=== PATIENT | male | born 1965 ===

== ENCOUNTER 2022-05-30 17:15 | Emergency (ER) | payer BC, SELFPAY ==
[2022-05-30 17:47] VITALS: BP 157/82; PULSE 70; RESP 18; TEMP 36.7; O2SAT 99
--- NOTE | 2022-05-30 17:53 | ED.EYEPROB ---
HPI - Eye Problem General Chief complaint: Eye Problems Stated complaint: Left eye irritation Time Seen by Provider: 05/30/22 17:53 Source: patient, RN notes reviewed and old records reviewed Mode of arrival: ambulatory Limitations: no limitations History of Present Illness HPI Narrative: 56-year-old male presents to the [facility] with left eye irritation. patient reports this morning it feels like there was something in his left lower lateral eyelid. Had been tearing. No crusting over. Denies any change in vision, blurry vision, trauma to the eye. Tried calling [facility], was booked up till Thursday. is a contact wearer Onset (ago): hour(s) Related Data Home Medications Medication Instructions Recorded Confirmed lisinopril 20 mg tablet 20 mg PO DAILY 05/30/22 05/30/22 metoprolol tartrate 25 mg tablet 25 mg PO DAILY 05/30/22 05/30/22 Allergies Allergy/AdvReac Type Severity Reaction Status Date / Time acetaminophen [Endocet] Allergy Unknown nerve Verified 05/30/22 20:31 problem in face oxycodone Allergy Unknown nerve Verified 05/30/22 20:31 problem in face Review of Systems Review of Systems: All systems reviewed & are unremarkable except as noted in HPI and below Constitutional: Constitutional: Reports no additional constitutional complaints Eyes: Eyes: Reports as per HPI, Denies change in vision and Denies photophobia ENT: Reports system reviewed and no additional complaints, except as documented Cardiovascular: Cardiovascular: Reports no additional cardiovascular complaints, Denies chest pain and Denies dyspnea Respiratory: Respiratory: Reports no additional respiratory complaints, Denies chest congestion, Denies cough and Denies dyspnea Gastrointestinal: Gastrointestinal: Reports no additional gastrointestinal complaints, Denies abdominal pain, Denies nausea and Denies vomiting Musculoskeletal: Musculoskeletal: Reports no additional musculoskeletal complaints Integumentary/Breasts: Skin/Breast: Reports system reviewed and no additional complaints, except as docu Neurologic: Reports system reviewed and no additional complaints, except as documented Psychiatric: Psychiatric: Reports no additional psychiatric complaints Allergic/Immunologic: Allergic/Immunologic: Reports no additional allergic/immunologic complaints [facility] Past Medical History Medical History (Updated 05/30/22 @ 20:31 by Araceli Reyes APRN) History of high blood pressure Social History Social History (Updated 05/30/22 @ 20:31 by Araceli Reyes APRN) Living arrangements: with family Gender identity (if verbalized by the patient): Male Comments At the time of my signature, I reviewed and agree with the nursing past medical, surgical, social, and family history. There is no relevant family history pertinent to the patient complaint. Exam Const: General: cooperative, healthy appearing, comfortable, no acute distress, well developed, alert and well nourished Nutritional Appearance: well nourished Orientation/consciousness: patient oriented x3 Limitations: no limitations HENMT: Head: normal to inspection Ears: hearing grossly normal bilaterally and external ears normal Face/Nose/Sinus: Normal external nose present, Normal nares present, Normal nasal mucous membranes and turbinates present and normal facial exam Face and sinus: normal facial exam Mouth: Yes Normal oral and palatal mucosa present, Yes lip normal and Yes moist mucous membranes Throat: posterior oropharynx normal and uvula midline Eyes: General: appearance normal, both eyes and all related structures Alignment and Position: alignment normal Periorbital: periorbital findings normal Conjunctivae: conjunctival abnormality left conjunctival injection localized ( lower lid) and discharge ( clear) Pupils: Equal, round and reactive pupils present EOM: EOMs intact bilaterally Other: stye noted left lower lid Neck: Neck: normal visual
== END 2022-05-30 18:08 | disposition home or self-care (01) ==
PROVIDERS: Emergency Provider Nurse Practitioner; PCP Student in an Organized Health Care Education/Training Program
DX: H10.32 Unspecified acute conjunctivitis, left eye (principal); H00.015 Hordeolum externum left lower eyelid
CPT/HCPCS: 99213; G0463

== ENCOUNTER 2022-06-30 08:02 | Emergency (ER) | payer BC, SELFPAY ==
[2022-06-30 08:15] VITALS: BP 152/77; PULSE 78; RESP 16; TEMP 36.6; O2SAT 100
--- NOTE | 2022-06-30 08:34 | ED.URI ---
HPI - URI/Sore Throat General Chief Complaint: Upper Respiratory Infection Stated Complaint: Congestion,Cough,Headache,Body Aches Source: patient Mode of arrival: ambulatory Limitations: no limitations History of Present Illness HPI Narrative: 56-year-old male presents to [facility] with complaints of dry cough for the past week. Patient reports that 3 days ago his symptoms became worse when he started with body aches. Headache, postnasal drainage, sore throat and intermittent dizziness. Patient has been taking [id number] cold medications with minimal relief. Patient is a nonsmoker. Patient denies recent travel. Patient denies sick contacts. Patient denies shortness of breath, wheezing, nausea, vomiting, diarrhea. MD elicited complaint: cough, sore throat, rhinorrhea and nasal congestion Onset (ago): day(s) (3) Able to tolerate fluids by mouth: Yes Treatments prior to arrival: cold medicine Related Data Home Medications Medication Instructions Recorded Confirmed amlodipine 10 mg tablet 10 mg DIRECTED 06/30/22 06/30/22 pregabalin 50 mg capsule 50 mg DIRECTED 06/30/22 06/30/22 Allergies Allergy/AdvReac Type Severity Reaction Status Date / Time acetaminophen [Endocet] Allergy Unknown nerve Verified 05/30/22 20:31 problem in face oxycodone Allergy Unknown nerve Verified 05/30/22 20:31 problem in face Review of Systems Constitutional: Constitutional: Reports chills, Reports fatigue, Denies fever(s) and Denies weakness ENT: Denies dizziness, Denies epistaxis, Reports nasal congestion and Reports sore throat Respiratory: Respiratory: Denies chest congestion, Reports cough, Denies dyspnea and Denies wheezing Gastrointestinal: Gastrointestinal: Denies diarrhea Integumentary/Breasts: Skin/Breast: Denies erythema, Denies rash and Denies skin ulcer PMFSH Past Medical History Medical History History of high blood pressure Social History Social History Living arrangements: with family Gender identity (if verbalized by the patient): Male Comments At time of signature, I agree with nursing past medical, surgical, social and family history. There is no relevant family history pertinent to the presenting complaint. Exam Const: General: healthy appearing and no acute distress Nutritional Appearance: well nourished Orientation/consciousness: patient oriented x3 Limitations: no limitations HENMT: Head: normal to inspection Ears: external ears normal, TM's normal bilaterally and EAC's normal Mouth: Yes Normal oral and palatal mucosa present, Yes lip normal and Yes moist mucous membranes Teeth and gingiva: dentition normal Throat: posterior oropharynx normal and uvula midline Other: Moderate nasal congestion noted Eyes: Conjunctivae: conjunctivae normal Neck: Neck: normal visual inspection Resp: Effort & Inspection: normal respiratory effort and not labored Auscultation: clear to auscultation bilaterally, no crackles, no rales, no rhonchi and no wheezes Cardio: Rate: regular rate Rhythm: regular rhythm Heart sounds: no murmurs Skin: General skin exam: normal color Rashes: no rashes Wounds: no wounds Neuro: General: patient oriented x3 Speech: normal speech Psych: Affect: normal affect Attitude: cooperative Course Course Level of Care: Express Care Visit Vital Signs Vital signs: Vital Signs Temperature 36.6 C 06/30/22 08:15 Pulse Rate 78 06/30/22 08:15 Respiratory Rate 16 06/30/22 08:15 Blood Pressure 152/77 H 06/30/22 08:15 Pulse Oximetry 100 06/30/22 08:15 Oxygen Delivery Room Air 06/30/22 08:15 Temperature 36.6 C 06/30/22 08:15 Pulse Rate 78 06/30/22 08:15 Respiratory Rate 16 06/30/22 08:15 Blood Pressure 152/77 H 06/30/22 08:15 Pulse Oximetry 100 06/30/22 08:15 Oxygen Delivery Room Air 06/30/22 08:15
== END 2022-06-30 08:53 | disposition home or self-care (01) ==
PROVIDERS: Emergency Provider Nurse Practitioner Family; PCP Student in an Organized Health Care Education/Training Program
DX: U07.1 COVID-19 (principal)
CPT/HCPCS: 87081; 87426; 87804; 87880; 99213; C9803; G0463

== ENCOUNTER 2022-11-07 15:38 | Emergency (ER) | payer BC, SELFPAY ==
--- NOTE | ~2022-11-07 | XR_ITS ---
XR knee LT min 4V DATE: 11/07/2022 16:34 INDICATION: Patellar pain and swelling for 3 weeks after kneeling on floor TECHNIQUE: [place], lateral and standing AP and PA views of the left knee COMPARISON: 11/04/2006 left knee FINDINGS: There is inferior prepatellar soft tissue swelling. There is mild loss of height of the med ial compartment. No fracture or dislocation or joint effusion is detected. No radiopaque intra-articu lar loose body or chondrocalcinosis. No periosteal reaction or bone destruction. IMPRESSION: Prepatellar soft tissue swelling is noted in the inferior half of the patella Mild loss of height of medial compartment joint space No fracture or dislocation or joint effusion Reviewed, dictated and finalized at location B. IMPRESSION: Prepatellar soft tissue swelling is noted in the inferior half of t he patella Mild loss of height of medial compartment joint space No fracture or dislocation or joint effusion
[2022-11-07 15:46] VITALS: BP 144/73; PULSE 74; RESP 16; TEMP 36.4; O2SAT 95
--- NOTE | 2022-11-07 16:32 | ED.EXTPRO ---
HPI - Extremity Problem General Chief complaint: Extremity Problem,Nontraumatic Stated complaint: Lt Knee Time Seen by Provider: 11/07/22 16:32 Source: patient Mode of arrival: ambulatory Limitations: no limitations History of Present Illness HPI Narrative: 57-year-old male presented for complaint of left knee swelling for about 2 weeks. States this started after he was kneeling and felt something roll underneath the knee. He was seen by an Urgent Care, given prescription for steroid and reported mild improvement. Pain is mild, states slightly worse with ambulation. Denies redness, warmth,numbness, tingling, weakness of the extremity. He is not taking anything else for pain. Related Data Home Medications Medication Instructions Recorded Confirmed amlodipine 10 mg tablet 10 mg DIRECTED 06/30/22 11/07/22 pregabalin 50 mg capsule 50 mg DIRECTED 06/30/22 11/07/22 omeprazole 20 mg capsule,delayed 20 mg PO DAILY 11/07/22 11/07/22 release Allergies Allergy/AdvReac Type Severity Reaction Status Date / Time acetaminophen [Endocet] AdvReac Intermediate nerve Verified 11/07/22 15:59 problem in face oxycodone AdvReac Intermediate nerve Verified 11/07/22 15:59 problem in face Review of Systems Review of Systems: CONSTITUTIONAL: Denies body aches, fever, chills EYES: Denies visual changes ENT: Denies rhinorrhea, congestion CARDIOVASCULAR: Denies chest pain, palpitations, or edema. RESPIRATORY: Denies cough or dyspnea. GASTROINTESTINAL: Denies abdominal pain, nausea, vomiting, or diarrhea. SKIN: Denies rash, itching, or wounds. MUSCULOSKELETAL: Reports left knee swelling Denies back pain, joint pain, or myalgia. NEUROLOGIC: Denies headache, numbness, tingling, or weakness. PSYCH: Denies depression or anxiety. All systems reviewed & are unremarkable except as noted in HPI and below PMFSH Past Medical History Medical History History of high blood pressure Social History Social History Living arrangements: with family Gender identity (if verbalized by the patient): Male Comments At time of signature, I have reviewed and agree with nursing past medical, surgical, social and family history unless otherwise noted. Please see nursing chart for further information. There is no relevant family history pertinent to the presenting complaint Exam Narrative: GENERAL: Well-appearing, well-nourished, and in no acute distress. HEAD: Normocephalic, atraumatic. EYES: PERRLA, conjunctivae clear NECK: Supple. CHEST: Speaks in full sentences. No respiratory distress. HEART: Regular rate and rhythm. Normal and equal peripheral pulses. EXTREMITIES: left knee soft tissue swelling inferior and medially to patella, soft, nontender, no erythema or warmth. Mild tenderness medial aspect. Patient is able to bear weight and ambulate with minimal pain to the left knee. Patient is able to tolerate full flexion, extension, internal and external rotation. No tenderness to palpation of the patella, no effusion or ballottement. No tenderness over the proximal fibular head. No quadriceps tenderness. Distal motor and neurovascular status intact. No obvious deformity; alignment normal, pulse palpable and equal bilaterally, skin warm, dry, pink. Capillary refill less than 3 seconds. SKIN: Warm, dry, no rash. NEURO: Alert and oriented x3. Course Course Emergency Course: Patient is aware of diagnosis, understands and agrees to treatment plan. Anticipatory guidance given. Patient agrees to follow-up as directed and is aware of reasons to seek care at the emergency department. Portions of this record may have been created with voice recognition software Level of Care: Express Care Visit Vital Signs Vital signs: Vital Signs Temperature 97.5 F L 11/07/22 15:46 Pulse Rate 74
== END 2022-11-07 17:14 | disposition home or self-care (01) ==
PROVIDERS: Emergency Provider Nurse Practitioner Family; PCP Student in an Organized Health Care Education/Training Program
DX: M25.562 Pain in left knee (principal); I10 Essential (primary) hypertension
CPT/HCPCS: 73564; 99213; G0463